=== PATIENT | female | born 1950 | race Caucasian/White ===

== ENCOUNTER → 2017-01-24 | Outpatient (CLI) | payer MEDICARE, BC | LOC: MC.RAD 11:00 | DX: Z12.31 Encounter for screening mammogram for malignant neoplasm of breast (principal) ==

== ENCOUNTER → 2018-02-22 | Outpatient (CLI) | payer MEDICARE, BC | LOC: MC.RAD 13:50 | DX: Z12.31 Encounter for screening mammogram for malignant neoplasm of breast (principal) ==

== ENCOUNTER 2019-08-20 09:47 | Day surgery (SDC) | payer MEDICARE, BC ==
[~2019-08-20] VITALS: Ht 162.6 cm; Wt 74.2 kg
[2019-08-20] VITALS (13 sets, daily range): BP systolic 99–140; BP diastolic 50–77; PULSE 51–82; TEMP 97.5
[2019-08-20] MEDS ORDERED: PRINIVIL10 MG PO (10:20)
[2019-08-20] MEDS ORDERED: ZETIA 10MG TAB10 MG PO (10:21)
[2019-08-20] MEDS ORDERED: HCTZ12.5TAB PO (10:21)
[2019-08-20] MEDS ORDERED: PEPCID 20MG TAB20 MG PO (10:22)
[2019-08-20] MEDS ORDERED: CALCIUM-MAGNES1 EAC1 PO (10:22)
[2019-08-20] MEDS ORDERED: CALTRATE-600 W600 MG PO (10:23)
[2019-08-20] MEDS ORDERED: PHARMASSURE ZIN50 MG PO (10:24)
[2019-08-20] MEDS ORDERED: OMEGA-31 SGL PO (10:24)
[2019-08-20] MEDS ORDERED: TURMERIC500 MG PO (10:25)
[2019-08-20] MEDS ORDERED: B-121000 MCG PO (10:25)
[2019-08-20] MEDS ORDERED: CINNAMON500 MG PO (10:26)
[2019-08-20] MEDS ORDERED: REQUIP0.25 MG PO (10:28)
[2019-08-20 10:44] LABS: HEMOGLOBIN 11.6 g/dl (12.5-16.0); MEAN CELL VOLUME 85 fl (80.0-100.0); MEAN CORPUSCULAR HEMOGLOBIN 27 pg (27.0-31.0); MEAN CORPUSCULAR HGB CONC 31 g/dl (33.0-37.0); MEAN PLATELET VOLUME 8.7 fl (7.4-10.4); PLATELET COUNT 284 K/mm3 (130-400); RED BLOOD COUNT 4.34 M/mm3 (4.10-5.30); REDCELL DISTRIBUTION WIDTH-CV 16.9 % (11.5-14.5)
[2019-08-20 10:46] LABS: HEMATOCRIT 36.9 % (37.0-47.0)
[2019-08-20 10:55] LABS: CALCIUM 9.5 mg/dL (8.4-10.2); CREATININE, serum 0.9 (0.52-1.25); POTASSIUM 3.9 mmol/L (3.4-5.0)
[2019-08-20 10:56] LABS: INR 0.9 (0.8-3.0)
[2019-08-20 10:58] LABS: PARTIAL THROMBOPLASTIN TIME 28.3 SECONDS (26.0-37.0)
--- NOTE | 2019-08-20 12:23 | NUR ---
SEE MERGE DOCUMENTATION FOR MEDICATION ADMINISTRATION AND INTRA AND POST PROCEDURE SEDATION ASSESSMENTS.
--- NOTE | 2019-08-20 13:10 | NUR ---
Pt is back from cardiac catheterization technologist, bs report received from Pily RASMUSSEN. pt is awake and alert, at bs. TR band with 9 ml air to rt wrist, cms intact distal, no bleeding or hematoma. rt groin has starclose dressing present, site soft without bleeding or hematoma, cms intact distal. pt and aware of plan for br x 4 hours. 1/2ns infusing at 250/hr. iv site looks good.
[2019-08-20] MEDS ORDERED: NORVASC 5MG5 MG/TAB PO (14:29)
[2019-08-20] MEDS ORDERED: LIPITOR20 MG PO (14:30)
[2019-08-20] MEDS ORDERED: ASPIRIN E.C. 8181 MG PO (14:30)
--- NOTE | 2019-08-20 15:30 | NUR ---
PT GIVEN TYLENOL FOR SOME DISCOMFORT TO RT UPPER ARM. RT RADIAL SITE LOOKS GOOD, HAVE STARTED TO DEFLATE THE BAND, NO BLEEDING OR HEMATOMA PRESENT, NO PALPABLE MASS OR BRUISING NOTED TO RT MEDIAL UPPER ARM. WCTM. CMS INTACT DISTAL.
--- NOTE | 2019-08-20 16:25 | NUR ---
pt assisted to bedpan with no problem, rt groin site unchanged, remains soft without active bleeding or hematoma, still has scant drainage on gauze. rt arm feeling better after tylenol.
--- NOTE | 2019-08-20 16:50 | NUR ---
Report received from Margaux Isabel.
--- NOTE | 2019-08-20 16:55 | NUR ---
Pt care transferred to Geri RASMUSSEN. pt doing well, resting comfortably, no change in wrist or groin sites. band to rt wrist has had 8 cc air removed in following fashion ; 1cc at 1525, 1 cc at 1530, 1 cc at 1545, 2 cc at 1605, 3 cc at 1655. approx 5 cc removed from safeguard dressing at 1655. dc/f/u and rx instructions have been reviewed with pt and . no questions or concerns at this time.
--- NOTE | 2019-08-20 18:00 | NUR ---
Discharge instructions given to pt.Pt verbalizes understanding.INT removed,catheter tip intact.Dressing at groin site change,safety dressing removed,Right radial dressing observed clean,dry,and soft to touch.Pt escortedout via wheelchair by this nurse.
== END 2019-08-20 18:48 | disposition home or self-care (01) ==
LOC: COL.CAR 09:47
PROVIDERS: Internal Medicine Cardiovascular Disease
DX: R94.39 Abnormal result of other cardiovascular function study (principal); I08.3 Combined rheumatic disorders of mitral, aortic and tricuspid valves; I10 Essential (primary) hypertension; E78.5 Hyperlipidemia, unspecified; I44.7 Left bundle-branch block, unspecified; K21.9 Gastro-esophageal reflux disease without esophagitis; M19.90 Unspecified osteoarthritis, unspecified site; M35.3 Polymyalgia rheumatica; Z90.49 Acquired absence of other specified parts of digestive tract; Z90.710 Acquired absence of both cervix and uterus; I48.0 Paroxysmal atrial fibrillation; Z88.8 Allergy status to other drugs, medicaments and biological substances; Z79.82 Long term (current) use of aspirin; Z87.891 Personal history of nicotine dependence; Z83.3 Family history of diabetes mellitus; Z80.3 Family history of malignant neoplasm of breast
CPT/HCPCS: J1644; J2250; J3010; Q9967

== ENCOUNTER 2020-11-15 20:09 | Emergency (ER) | payer MEDICARE, BC ==
[~2020-11-15] VITALS: Ht 162.6 cm; Wt 72.7 kg
[~2020-11-15 20:09] MED LIST: ASPIRIN E.C. 8181 MG PO; B-121000 MCG PO; CALCIUM-MAGNES1 EAC1 PO; CALTRATE-600 W600 MG PO; CARDIZEM CD 12120 MG PO; CINNAMON500 MG PO; HCTZ12.5TAB PO; LIPITOR20 MG PO; NORVASC 5MG5 MG/TAB PO; OMEGA-31 SGL PO; PEPCID 20MG TAB20 MG PO; PHARMASSURE ZIN50 MG PO; PRINIVIL10 MG PO; PROTONIX 40MG T40 MG PO; REQUIP0.25 MG PO; TURMERIC500 MG PO; ULTRACET TABL1 UDTAB PO; ZETIA 10MG TAB10 MG PO
[2020-11-15 20:24] VITALS: TEMP 98
[2020-11-15 23:05] LABS: COLLECTION METHOD CLEAN CATCH
[2020-11-15 23:57] LABS: MUCOUS Present /lpf; PH 6 (5-8); SQUAMOUS EPITHELIAL None Seen /hpf; URINE APPEARANCE Turbid; URINE BACTERIA Occasional /hpf; URINE BILIRUBIN Negative (NEGATIVE); URINE BLOOD 3+ (NEGATIVE); URINE COLOR Yellow; URINE GLUCOSE Negative (NEGATIVE); URINE KETONE Negative (NEGATIVE); URINE LEUKOCYTE ESTERASE 3+ (NEGATIVE); URINE NITRATE Positive (NEGATIVE); URINE PROTEIN(semi-quant) 2+ (NEGATIVE); URINE RBC >50 /hpf; URINE UROBILINOGEN Negative (NEGATIVE)
[2020-11-16] MEDS ORDERED: OMNICEF 300MG300 MG PO ×3 (00:11→00:21)
[2020-11-16 00:18] VITALS: BP 129/71; PULSE 84
== END 2020-11-16 00:22 | disposition home or self-care (01) ==
LOC: COL.ER 20:09
PROVIDERS: Nurse Practitioner Primary Care
DX: N39.0 Urinary tract infection, site not specified (principal); K21.9 Gastro-esophageal reflux disease without esophagitis; I10 Essential (primary) hypertension; Z90.710 Acquired absence of both cervix and uterus; Z90.49 Acquired absence of other specified parts of digestive tract; Z79.899 Other long term (current) drug therapy